=== PATIENT | male | born 1970 | race African-American/Black ===

== ENCOUNTER 2021-01-27 16:33 | Inpatient (IN) | payer SELFPAY ==
[~2021-01-27] VITALS: Ht 170.2 cm; Wt 94.8 kg
[2021-01-27] MEDS ORDERED: AZITHROMYCIN 500MG/ 250ML 250 ML IV ONE (17:15)
[2021-01-27] MEDS ORDERED: ASCORBIC ACID 500 MG TAB PO ONE (17:15)
[2021-01-27] MEDS ORDERED: ZINC SULFATE 220mg CAP or TAB PO ONE (17:15)
[2021-01-27] MEDS ORDERED: DexAMETHasone SOD PHOS 10MG/1ML VIAL INJ IV ONE (17:15)
[2021-01-27 19:19] LABS: Basophils # (auto) 0 10 ^3/uL (0-0.2); Eosinophils # (auto) 0 10 ^3/uL (0-0.8); Eosinophils % (auto) 0.2 % (0.0-7.0); Red Cell Distribution Width 14.9 % (11.8-14.3)
[2021-01-27 19:20] LABS: Basophils % (auto) 0.1 % (0.0-2.0); Hematocrit 53.7 % (41.0-53.0); Hemoglobin 17.8 g/dL (13.5-17.5); Lymphocytes # (auto) 1.1 10 ^3/uL (0.4-5.4); Lymphocytes % (auto) 7.2 % (10.0-50.0); Mean Corpuscular Hemoglobin 29.1 pg (28.0-32.0); Mean Corpuscular Hgb Conc. 33.2 g/dL (32.0-36.0); Mean Corpuscular Volume 87.7 fL (80.0-100.0); Monocytes % (auto) 13.4 % (0.0-12.0); Neutrophils % (auto) 79.1 % (37.0-80.0); Nucleated Red Blood Cells % 0.1 %; Red Blood Cells 6.12 10^6/uL (4.5-5.90); White Blood Cell 15.1 10^3/uL (4.4-10.8)
[2021-01-27 19:37] LABS: Alanine Aminotransferase 27 U/L (16-61); Albumin 2.8 g/dL (3.4-5.0); Anion Gap 5 (5-15); Aspartate Aminotransferase 24 U/L (15-37); BUN/Creatinine Ratio 18.9; Blood Urea Nitrogen 25 mg/dL (7-18); Calcium 8.9 mg/dL (8.5-10.1); Carbon Dioxide 29 mmol/L (21-32); Chloride 102 mmol/L (98-107); GFR African American 74 mL/min; GFR Non-African American 62 mL/min; Glucose 153 mg/dL (74-106); Potassium 3.7 mmol/L (3.5-5.1); Sodium 136 mmol/L (136-145)
[2021-01-27 19:46] LABS: Alkaline Phosphatase 50 U/L (45-117); Total Protein 8.7 g/dL (6.4-8.2)
[2021-01-27 20:33] LABS: Urine Bacteria FEW /hpf (None Seen); Urine Blood Negative /uL (Negative); Urine Hyaline Cast FEW /lpf (0 - 2); Urine Mucus FEW (None Seen); Urine Specific Gravity 1.024 (1.001-1.035); Urine WBC <1 /hpf (0 - 3)
[2021-01-27] MEDS ORDERED: NITROGLYCERIN 0.4 MG SL TAB SL PRN (21:15)
[2021-01-27] MEDS ORDERED: ONDANSETRON HCL 4 MG/2 ML VIAL IV PRN (21:15)
[2021-01-27] MEDS ORDERED: REMDESIVIR PER PHARMACY 0 ML IV SCH (21:15)
[2021-01-27] MEDS ORDERED: ACETAMINOPHEN 500 MG TAB PO PRN (21:15)
[2021-01-27] MEDS ORDERED: MORPHINE SULFATE INJECTION 2 MG/ML SYRG IV PRN (21:15)
[2021-01-27] MEDS ORDERED: TEMAZEPAM 15 MG CAP PO PRN (21:15)
[2021-01-27] MEDS ORDERED: cefTRIAXone 1GM/50ML D5W 50 ML IV ONE (21:15)
[2021-01-27 22:01] LABS: Magnesium 3.1 mg/dL (1.6-2.6)
[2021-01-27 22:09] LABS: CRP High Sensitivity 10.6 mg/dL (< 0.3)
[2021-01-28] VITALS (7 sets, daily range): BP systolic 112–138; BP diastolic 78–101
[2021-01-28] MEDS: ENOXAPARIN SOD 40 MG/0.4 ML SYRINGE SC SCH ×3 (00:20→21:17)
[2021-01-28 06:58] LABS: Basophils # (auto) 0 10 ^3/uL (0-0.2); Basophils % (auto) 0.1 % (0.0-2.0); Eosinophils # (auto) 0 10 ^3/uL (0-0.8); Hematocrit 46.8 % (41.0-53.0); Hemoglobin 15.8 g/dL (13.5-17.5); Lymphocytes # (auto) 0.7 10 ^3/uL (0.4-5.4); Mean Corpuscular Hgb Conc. 33.8 g/dL (32.0-36.0); Mean Corpuscular Volume 88.9 fL (80.0-100.0); Monocytes # (auto) 0.5 10 ^3/uL (0-1.3); Monocytes % (auto) 5.1 % (0.0-12.0); Neutrophils # (auto) 9.4 10 ^3/uL (1.6-8.6); Neutrophils % (auto) 87.8 % (37.0-80.0); Red Blood Cells 5.26 10^6/uL (4.5-5.90); Red Cell Distribution Width 14.5 % (11.8-14.3); White Blood Cell 10.7 10^3/uL (4.4-10.8)
[2021-01-28 07:17] LABS: Potassium 3.7 mmol/L (3.5-5.1)
[2021-01-28 07:22] LABS: Albumin 2.5 g/dL (3.4-5.0); BUN/Creatinine Ratio 24.2; Bilirubin, Total 0.7 mg/dL (0.2-1.0); Calcium 8.8 mg/dL (8.5-10.1); Total Protein 8.4 g/dL (6.4-8.2)
[2021-01-28] MEDS: ZINC SULFATE 220mg CAP or TAB PO SCH (09:20)
[2021-01-28] MEDS: cefTRIAXone 1GM/50ML D5W 50 ML IV SCH (09:20)
[2021-01-28] MEDS: DexAMETHasone SOD PHOS 10MG/1ML VIAL INJ IV SCH (09:20)
[2021-01-28] MEDS: CHOLECALCIFEROL (VITD3) 2,000 UNIT CAP/TAB PO SCH (09:21)
[2021-01-28] MEDS: ASCORBIC ACID 1,000 MG TAB PO SCH (09:21)
[2021-01-28] MEDS: AZITHROMYCIN 500MG/ 250ML 250 ML IV SCH (12:38)
[2021-01-28] MEDS: PANTOPRAZOLE 40 MG TAB PO SCH (12:38)
[2021-01-28] MEDS ORDERED: REMDESIVIR 200 MG in NS 210ml LOADING DOSE ADULT IV ONE (17:00)
[2021-01-28] MEDS ORDERED: IOHEXOL 350 MG/ML 100ML IJ ONE (17:40)
[2021-01-29 05:00] VITALS: BP 126/82
[2021-01-29 06:19] LABS: INR 1.1 (0.9-1.15)
[2021-01-29 06:20] LABS: Potassium 3.6 mmol/L (3.5-5.1)
[2021-01-29 06:39] LABS: Albumin 2.5 g/dL (3.4-5.0); BUN/Creatinine Ratio 26.5; Bilirubin, Total 0.5 mg/dL (0.2-1.0); CRP High Sensitivity 6.5 mg/dL (< 0.3); Calcium 8.8 mg/dL (8.5-10.1); Magnesium 3.2 mg/dL (1.6-2.6); Total Protein 8.2 g/dL (6.4-8.2)
[2021-01-29 08:00] VITALS: BP_SYST 134; BP_DIAS 81; BP_DIAS 84
[2021-01-29] MEDS: PANTOPRAZOLE 40 MG TAB PO SCH (09:36)
[2021-01-29] MEDS: CHOLECALCIFEROL (VITD3) 2,000 UNIT CAP/TAB PO SCH (09:36)
[2021-01-29] MEDS: ENOXAPARIN SOD 40 MG/0.4 ML SYRINGE SC SCH (09:37)
[2021-01-29] MEDS: ZINC SULFATE 220mg CAP or TAB PO SCH (09:37)
[2021-01-29] MEDS: ASCORBIC ACID 1,000 MG TAB PO SCH (09:37)
[2021-01-29] MEDS: DexAMETHasone SOD PHOS 10MG/1ML VIAL INJ IV SCH (09:37)
[2021-01-29] MEDS: cefTRIAXone 1GM/50ML D5W 50 ML IV SCH (09:39)
[2021-01-29] MEDS: AZITHROMYCIN 500MG/ 250ML 250 ML IV SCH (10:53)
[2021-01-29 11:57] VITALS: BP 115/71
[2021-01-29] MEDS ORDERED: REMDESIVIR 100mg 100 MG in SODIUM CHL 0.9% 230 ML IV SCH (15:00)
[2021-01-29 16:23] VITALS: BP 114/83
[2021-01-29 22:00] VITALS: BP 114/89
[2021-01-29] MEDS: ENOXAPARIN SOD 100 MG/1 ML SYRINGE SC SCH (22:00)
[2021-01-29] MEDS: ALBUTEROL SULF HFA 90MCG INH 200DOSE IN PRN (22:37)
[2021-01-30 05:24] VITALS: BP 110/65
[2021-01-30] MEDS: ALBUTEROL SULF HFA 90MCG INH 200DOSE IN PRN (06:23)
[2021-01-30 07:18] LABS: Albumin 2.4 g/dL (3.4-5.0); Calcium 8.6 mg/dL (8.5-10.1); Potassium 4.1 mmol/L (3.5-5.1)
[2021-01-30 07:27] LABS: BUN/Creatinine Ratio 23.9; Bilirubin, Total 0.4 mg/dL (0.2-1.0); CRP High Sensitivity 3.12 mg/dL (< 0.3); Total Protein 7.5 g/dL (6.4-8.2)
[2021-01-30] MEDS: DexAMETHasone SOD PHOS 10MG/1ML VIAL INJ IV SCH (08:34)
[2021-01-30] MEDS: PANTOPRAZOLE 40 MG TAB PO SCH (08:34)
[2021-01-30] MEDS: CHOLECALCIFEROL (VITD3) 2,000 UNIT CAP/TAB PO SCH (08:34)
[2021-01-30] MEDS: cefTRIAXone 1GM/50ML D5W 50 ML IV SCH (08:34)
[2021-01-30] MEDS: ENOXAPARIN SOD 100 MG/1 ML SYRINGE SC SCH (08:35)
[2021-01-30] MEDS: ASCORBIC ACID 1,000 MG TAB PO SCH (08:35)
[2021-01-30] MEDS: ZINC SULFATE 220mg CAP or TAB PO SCH (08:35)
[2021-01-30 09:00] VITALS: BP 137/84
[2021-01-30] MEDS: AZITHROMYCIN 500MG/ 250ML 250 ML IV SCH (11:11)
[2021-01-30] MEDS ORDERED: ASCO10003 PO (11:49)
[2021-01-30] MEDS ORDERED: APIX5TAB4 PO ×2 (11:49→11:51)
[2021-01-30] MEDS ORDERED: DOXY-286 PO (11:49)
[2021-01-30] MEDS ORDERED: ALBUAER3 IN (11:49)
[2021-01-30] MEDS ORDERED: BUDE2SUS3 IN (11:49)
[2021-01-30] MEDS ORDERED: CHOL20007 PO (11:49)
[2021-01-30] MEDS ORDERED: ZINC220T6 PO (11:49)
[2021-01-30] MEDS ORDERED: FAMO20TA10 PO (11:49)
[2021-01-30] MEDS ORDERED: REMDESIVIR 100mg 100 MG in SODIUM CHL 0.9% 230 ML IV SCH (12:30)
[2021-01-30 13:00] VITALS: BP 123/86
== END 2021-01-30 17:10 | disposition home or self-care (01) | DRG 177 ==
LOC: ER 16:33 → TELE 21:02 → TELE-EAST 01-28 02:28
PROVIDERS: ADMIT Nurse Practitioner; ATTEND Internal Medicine
PROC: XW033E5 Introduction of Remdesivir Anti-infective into Peripheral Vein, Percutaneous Approach, New Technology Group 5 (ICD-10-PCS; principal; 2021-01-28)
DX: U07.1 COVID-19 (principal); A41.89 Other specified sepsis; J12.82 Pneumonia due to coronavirus disease 2019; J96.01 Acute respiratory failure with hypoxia; I26.93 Single subsegmental thrombotic pulmonary embolism without acute cor pulmonale; E66.9 Obesity, unspecified; Z68.32 Body mass index [BMI] 32.0-32.9, adult; E55.9 Vitamin D deficiency, unspecified; D89.839 Cytokine release syndrome, grade unspecified
CPT/HCPCS: 36415; 71045; 71275; 80053; 81001; 82306; 82728; 83605; 83615; 83735; 84484; 85025; 85379; 85610; 86141; 87426; 93970; 94640; 96365; 96367; 96375; 99291; G0378; J0696; J1100

== ENCOUNTER 2021-03-07 09:27 | Emergency (ER) | payer SELFPAY ==
[~2021-03-07] VITALS: Ht 170.2 cm; Wt 95.3 kg
[~2021-03-07 09:27] MED LIST: ALBUAER3 IN; APIX5TAB4 PO; ASCO10003 PO; BUDE2SUS3 IN; DOXY-286 PO; ZINC220T6 PO
[2021-03-07 10:49] VITALS: BP 167/98
== END 2021-03-07 11:07 | disposition home or self-care (01) ==
LOC: ER 09:27
DX: I26.99 Other pulmonary embolism without acute cor pulmonale (principal); Z76.0 Encounter for issue of repeat prescription; Z79.899 Other long term (current) drug therapy